=== PATIENT | female | born 1945 | race Caucasian/White ===

== ENCOUNTER 2016-10-09 17:09 | Emergency (ER) | payer OTHER ==
[~2016-10-09] VITALS: Ht 170.2 cm; Wt 68.0 kg
[2016-10-09] MEDS ORDERED: ADVAIR 100-501 EACH INH (17:30)
[2016-10-09] MEDS ORDERED: SINGULAIR10 MG PO (17:31)
[2016-10-09] MEDS ORDERED: HYDROCHLOROTH12.5 M1 PO (17:31)
[2016-10-09] MEDS ORDERED: NORCO 5-325 TA1 EACH PO (18:35)
== END 2016-10-09 18:47 | disposition home or self-care (01) ==
LOC: ED 17:09
DX: S80.11XA Contusion of right lower leg, initial encounter (principal); M53.3 Sacrococcygeal disorders, not elsewhere classified; Z88.1 Allergy status to other antibiotic agents; Z88.7 Allergy status to serum and vaccine; Z79.51 Long term (current) use of inhaled steroids; Z79.899 Other long term (current) drug therapy; W18.30XA Fall on same level, unspecified, initial encounter
CPT/HCPCS: 72220; 73590; 99283